=== PATIENT | female | born 1995 | race Caucasian/White ===

== ENCOUNTER 2017-10-24 17:09 | Inpatient (IN) | payer OTHER ==
[~2017-10-24] VITALS: Ht 162.6 cm; Wt 2.3 kg
[2017-10-25] MEDS ORDERED: PRENATAL 19 TA1 EAC1 PO (15:22)
[2017-10-27] MEDS ORDERED: NAPR500T14 PO (11:55)
[2017-10-27] MEDS ORDERED: PREPLUS CA-FE1 EACH PO (11:55)
== END 2017-10-27 14:05 | disposition home or self-care (01) | DRG 765 ==
LOC: LDR 17:09 → OB/GYN 20:50
PROVIDERS: Specialist
PROC: 4A1HXCZ Monitoring of Products of Conception, Cardiac Rate, External Approach (ICD-10-PCS; 2017-10-24)
PROC: 10D00Z1 Extraction of Products of Conception, Low, Open Approach (ICD-10-PCS; principal; 2017-10-24 19:00)
DX: O36.8130 Decreased fetal movements, third trimester, not applicable or unspecified (principal); O41.03X0 Oligohydramnios, third trimester, not applicable or unspecified; Z3A.39 39 weeks gestation of pregnancy; Z37.0 Single live birth